=== PATIENT | male | born 1985 | race Caucasian/White ===

== ENCOUNTER 2017-02-24 13:12 | Emergency (ER) | payer OTHER ==
[~2017-02-24] VITALS: Ht 177.8 cm; Wt 69.0 kg
[~2017-02-24 13:12] MED LIST: CODEINE SULFATE30 MG PO; DEPAKOTE250 MG PO; FLEXERIL10 MG PO; MEDROL DOSEPAK4 MG PO; MOTRIN600 MG PO; MOTRIN800 MG PO; NAPROSYN500 MG PO; NAPROXEN500 MG PO; NOHOMEMEDS; NORCO 5/3251 TABLET PO; PEN-VEE K,VEET500 MG PO; SEROQUEL200 MG PO; XANAX0.5 MG PO; ZITHROMAX TRI-500 MG PO
[2017-02-24] MEDS ORDERED: LIDODERM 5% P1 PATCH TD (14:18)
[2017-02-24] MEDS ORDERED: FLEXERIL10 MG PO (14:18)
[2017-02-24] MEDS ORDERED: NAPROSYN500 MG PO (14:18)
[2017-02-24 14:29] VITALS: BP 116/84
== END 2017-02-24 14:30 | disposition home or self-care (01) ==
LOC: EME 13:12
DX: S16.1XXA Strain of muscle, fascia and tendon at neck level, initial encounter (principal); M62.830 Muscle spasm of back; V49.50XA Passenger injured in collision with unspecified motor vehicles in traffic accident, initial encounter; F17.210 Nicotine dependence, cigarettes, uncomplicated
CPT/HCPCS: 99281; 99284